=== PATIENT | female | born 1990 | race Caucasian/White ===

== ENCOUNTER 2024-07-29 06:32 | Day surgery (SDC) | payer OTHER ==
[2024-07-20 10:41] VITALS: BP 105/70
[2024-07-20 11:56] LABS: INR 1.02; PROTHROMBIN TIME 11.1 SECONDS (9.0-11.5)
[~2024-07-29] VITALS: Ht 154.9 cm; Wt 57.2 kg
[2024-07-29] MEDS ORDERED: POVIDONE-IODINE 118 ML BOTT TOP ONE ×2 (08:25→10:42)
[2024-07-29] MEDS ORDERED: POVIDONE-IODINE SCRUB 118 ML BOTT TOP ONE (08:25)
[2024-07-29] MEDS ORDERED: CLINDAMYCIN PHOSPHATE 150 MG/ML (900mg) ONE (08:25)
[2024-07-29] MEDS ORDERED: CHLORHEXIDINE GLUCONATE 120 ML BOTTLE TOP ONE (08:26)
[2024-07-29] MEDS ORDERED: GENTAMICIN SULFATE 40 MG/ML VIAL ONE (09:08)
[2024-07-29] MEDS ORDERED: CEFAZOLIN SODIUM 1,000 MG VIAL ONE (09:08)
[2024-07-29] MEDS ORDERED: VANCOMYCIN HCL 1,000 MG VIAL ONE (09:08)
[2024-07-29] MEDS ORDERED: BUPIVACAINE HCL/MPF 0.5% 30ML VIAL ONE (09:11)
[2024-07-29] MEDS ORDERED: SUGAMMADEX SODIUM 200 MG/2 ML VIAL IV ONE (12:37)
[2024-07-29] MEDS ORDERED: MORPHINE SULFATE 4 MG/ML VIAL IV ONE (13:55)
== END 2024-07-29 17:00 | disposition home or self-care (01) ==
LOC: CIR.AMB 06:32
PROVIDERS: ATTEND Surgery
DX: D48.61 Neoplasm of uncertain behavior of right breast (principal); D48.62 Neoplasm of uncertain behavior of left breast; N60.21 Fibroadenosis of right breast; N60.81 Other benign mammary dysplasias of right breast; N60.01 Solitary cyst of right breast; N60.02 Solitary cyst of left breast; Z15.01 Genetic susceptibility to malignant neoplasm of breast; Z90.13 Acquired absence of bilateral breasts and nipples; N65.1 Disproportion of reconstructed breast